=== PATIENT | female | born 1955 | race Caucasian/White ===

== ENCOUNTER 2018-01-16 15:54 | Emergency (ER) | payer BC ==
[2018-01-16] MEDS ORDERED: predniSONE TAB* 20 MG PO ONE (19:09)
[2018-01-16 19:12] VITALS: BP 138/80
--- NOTE | 2018-01-16 19:20 | UC ---
Skin Complaint HPI - HPI Summary HPI Summary: patient states that on January 13 she developed an itchy rash on her left cheek. She consulted with a physician via telemedicine and was diagnosed with contact dermatitits (the only contact she can think of is with a pillow) for which she started triamcinolone cream. The rash improved with the cream initially but did not resolve and started to feel swollen. She states now there is some pain on her left ear and throat as well. She states sometimes it is difficult to swallow but drinking water makes it better. Denies chills or fever , numbness or pain on the site of the rash. - History of Current Complaint Chief Complaint: [facility] Time Seen by Provider: 01/16/18 18:31 Stated Complaint: RASH Hx Obtained From: Patient ?: No Onset/Duration: Sudden Onset, Lasting Days Skin Exposure Onset/Duration: Days Ago Timing: Constant Onset Severity: Mild Current Severity: Moderate Pain Intensity: 0 Location: Discrete, Face, Other Character: Swelling, Pruritus Aggravating Factor(s): Nothing Alleviating Factor(s): Cold Associated Signs & Symptoms: Positive: Rash - Allergy/Home Medications Allergies/Adverse Reactions: Allergies Allergy/AdvReac Type Severity Reaction Status Date / Time No Known Allergies Allergy Verified 01/16/18 16:28 Review of Systems Constitutional: Negative Musculoskeletal: Negative All Other Systems Reviewed And Are Negative: Yes PMH/Surg Hx/FS Hx/Imm Hx Previously Healthy: Yes - Surgical History Surgical History: None - Family History Known Family History: Positive: None - Social History Alcohol Use: Occasionally Substance Use Type: None Smoking Status (MU): Never Smoked Tobacco Physical Exam Triage Information Reviewed: Yes Appearance: Well-Appearing, No Pain Distress, Obese Vital Signs: Initial Vital Signs Temp 98.2 F 01/16/18 16:23 Pulse 85 01/16/18 16:23 Resp 12 01/16/18 16:23 BP 156/83 01/16/18 16:23 Pulse Ox 97 01/16/18 16:23 Vital Signs Reviewed: Yes Eyes: Positive: Conjunctiva Clear ENT: Positive: Hearing grossly normal, Pharyngeal erythema, TMs normal Neck: Positive: Supple, Nontender, No Lymphadenopathy Respiratory: Positive: Chest non-tender, Lungs clear, Normal breath sounds, No respiratory distress Cardiovascular: Positive: RRR, No Murmur, Pulses Normal, Brisk Capillary Refill Abdomen Description: Positive: Nontender, No Organomegaly, Soft Skin Exam: Other - raised hives on left cheek , no dischage, non tender Course/Dx - Course Course Of Treatment: rapid strep negative, local triamcinolone not effective, start prednisone daily as prescribed. Follow up with PCP - Diagnoses Provider Diagnoses: contact dermatitis Discharge - Sign-Out/Discharge Documenting (check all that apply): Patient Departure, Post-Discharge Follow Up - Discharge Plan Condition: Good Disposition: HOME Prescriptions: predniSONE TAB* [Deltasone 20 MG TAB*] 40 mg PO DAILY 3 Days #6 tab Patient Education Materials: Prednisone (By mouth), Contact Dermatitis (ED) Referrals: Berna Sharma MD [Primary Care Provider] - Additional Instructions: please f/u with your physician within a week - Billing Disposition and Condition Condition: GOOD Disposition: Home
== END 2018-01-16 19:27 | disposition home or self-care (01) ==
LOC: UCEAST 15:54
DX: L25.9 Unspecified contact dermatitis, unspecified cause (principal)
CPT/HCPCS: 87651; 99212; G0463; J7512